=== PATIENT | female | born 1960 | race Caucasian/White ===

== ENCOUNTER 2019-02-26 16:09 | Emergency (ER) | payer OTHER ==
[2019-02-26 16:20] VITALS: BP 167/108
[2019-02-26] MEDS ORDERED: ONDANSETRON PF 4 MG/2 ML VIAL. ONE (16:25)
[2019-02-26] MEDS ORDERED: IV NORMAL SALINE 1,000ML 1,000 ML IV ONE (16:30)
[2019-02-26] MEDS ORDERED: ONDANSETRON PF 4 MG/2 ML VIAL. IV ONE (16:45)
[2019-02-26] MEDS ORDERED: KETOROLAC 30 MG/ML VIAL. IV ONE (16:45)
--- NOTE | 2019-02-26 16:48 | PHYS DOC ---
Past History Past Medical History: Diabetes, High Cholesterol Past Surgical History: Other Alcohol Use: None Drug Use: None Adult General Chief Complaint Chief Complaint: FLANK PAIN HPI HPI 58-year-old female presents with left flank pain. The patient is feeling a little bit off the last couple of days with some intermittent mild abdominal pain. Today however, she had left-sided flank pain was much more intense. It feels similar to her previous kidney stones. She has not had one in about 15 years. She has increased urinary frequency, but denies dysuria. She denies fever or chills. She has had 4 episodes of emesis. She is currently nauseous. Review of Systems Review of Systems Constitutional: Denies fever or chills [] Eyes: Denies change in visual acuity, redness, or eye pain [] HENT: Denies nasal congestion or sore throat [] Respiratory: Denies cough or shortness of breath [] Cardiovascular: No additional information not addressed in HPI [] GI: Left lower quadrant abdominal pain, nausea, vomiting. Denies bloody stools or diarrhea [] : Denies dysuria or hematuria [] Musculoskeletal: Left flank pain[] Integument: Denies rash or skin lesions [] Neurologic: Denies headache, focal weakness or sensory changes [] Endocrine: Denies polyuria or polydipsia [] All other systems were reviewed and found to be within normal limits, except as documented in this note. Current Medications Current Medications Current Medications Medications (Trade) Dose Ordered Sig/Kelli Start Time Stop Time Status Last Admin Dose Admin Ketorolac Tromethamine (Toradol 30mg Vial) 30 mg 1X ONCE 02/26/19 16:45 02/26/19 16:46 02/26/19 16:42 30 MG Ondansetron HCl (Zofran) 4 mg STK-MED ONCE 02/26/19 16:25 02/26/19 16:25 DC Sodium Chloride 1,000 ml @ 1,000 mls/hr 1X ONCE 02/26/19 16:30 02/26/19 17:29 02/26/19 16:40 1,000 MLS/HR Allergies Allergies Allergies Coded Allergies Type Severity Reaction Last Updated Verified No Known Drug Allergies 02/26/19 No Physical Exam Physical Exam Constitutional: Well developed, well nourished, no acute distress, non-toxic appearance. [] HENT: Normocephalic, atraumatic, bilateral external ears normal, oropharynx moist, no oral exudates, nose normal. [] Eyes: PERRLA, EOMI, conjunctiva normal, no discharge. [] Neck: Normal range of motion, no tenderness, supple, no stridor. [] Cardiovascular:Heart rate regular rhythm, no murmur [] Lungs & Thorax: Bilateral breath sounds clear to auscultation [] Abdomen: Bowel sounds normal, soft, LLQ tenderness, no masses, no pulsatile masses. [] Skin: Warm, dry, no erythema, no rash. [] Back: No tenderness, left sided CVA tenderness. [] Extremities: No tenderness, no cyanosis, no clubbing, ROM intact, no edema. [] Neurologic: Alert and oriented X 3, normal motor function, normal sensory function, no focal deficits noted. [] Psychologic: Affect normal, judgement normal, mood normal. [] Current Patient Data Vital Signs Vital Signs Date Time Temp Pulse Resp B/P (MAP) Pulse Ox O2 Delivery O2 Flow Rate FiO2 02/26/19 16:20 97.8 89 18 97 Room Air EKG EKG [] Radiology/Procedures Radiology/Procedures [] Impressions: CT ABDOMEN PELVIS WO CONTRAST Indication: Left flank pain, history of kidney stones. Exposure: One or more of the following individualized dose reduction techniques were utilized for this examination: 1. Automated exposure control 2. Adjustment of the mA and/or kV according to patient size 3. Use of iterative reconstruction technique. Comparison: None available Technique: No intravenous contrast given. No oral contrast per request. Findings: Evaluation of solid viscera, bowel and vasculature is compromised by the noncontrast technique. Mild atelectasis or fibrosis in the right posteromedial lung base. Liver and spleen appear grossly unremarkable. Pancreas is unremarkable. No evidence of adrenal mass. 2 mm nonobstructive calculus in the lower pole the left kidney. Mild left hydronephrosis and ureteric dilatation to the left ureterovesical junction where there is a 3 mm calculus. No right-sided calculus or hydronephrosis. Gallbladder contracted without calcified stone. Aorta is nonaneurysmal. No significant lymph node enlargement. No significant small bowel distention. Mild colonic diverticulosis. No evidence of acute colitis. The appendix is not clearly visualized. No significant ascites or evidence of pneumoperitoneum. Urinary bladder cannot be evaluated due to the nondistention. Focal right convexity scoliosis at the L2 level. Degenerative spondylosis at multiple levels. No focal aggressive destructive bone lesion. Mild degenerative changes at the hips. IMPRESSION: Mildly obstructive 3 mm calculus at the left ureterovesical junction. Additional left renal calculus. Electronically signed by: Rinku Maxwell MD (02/26/2019 5:26 PM) [facility] DICTATED AND SIGNED BY: RINKU MAXWELL MD DATE: 02/26/19 109 CC: MORA DAMON DO; [facility] [employer] ~ Course & Med Decision Making Course & Med Decision Making Pertinent Labs and Imaging studies reviewed. (See chart for details) The patient was given 4 mg of Zofran, 1 L of normal saline, and 30 mg Toradol. The patient does have a mildly obstructing 3 mm kidney stone at the left ur eterovesical junction. Given his size, this should pass. The patient's labs are unremarkable. Her urinalysis does not show infection. I will discharge her with reconstructions to drink plenty of fluids and if her [place] 5/325 for breakthrough pain. She is stable for discharge at this time. [] Dragon Disclaimer Dragon Disclaimer This electronic medical record was generated, in whole or in part, using a voice recognition dictation system. Departure Departure: Impression: Primary Impression: Ureterolithiasis Additional Impression: Nephrolithiasis Disposition: 01 HOME, SELF-CARE Condition: STABLE Referrals: LAMAR ASTORGA [employer] MANAGER (PCP) Patient Instructions: Kidney Stones, [id number] Scripts Ondansetron (ONDANSETRON ODT) 4 Mg Tab.rapdis 1 TAB PO PRN Q6-8HRS PRN for VOMITING, #16 TAB Prov: MORA DAMON DO 02/26/19 Hydrocodone Bit/Acetaminophen (NORCO 5-325 TABLET) 1 Each Tablet 1 TAB PO PRN Q6HRS PRN for PAIN, #10 TAB 0 Refills Prov: MORA DAMON DO 02/26/19 Problem Qualifiers MORA DAMON DO Feb 26, 2019 16:48
[2019-02-26 16:50] LABS: BASO # 0.1 x10^3/uL (0.0-0.2); BASO % 1 % (0-3); EOS % 0 % (0-3); HEMOGLOBIN 14.3 g/dL (12.0-15.5); LYMPH # 2.1 x10^3/uL (1.0-4.8); LYMPH % 19 % (24-48); MEAN CORPUSCULAR HEMOGLOBIN 33 pg (25-35); MEAN CORPUSCULAR HGB CONC 34 g/dL (31-37); MEAN CORPUSCULAR VOLUME 98 fL (79-100); MONO # 0.7 x10^3/uL (0.0-1.1); MONO % 7 % (0-9); NEUT # 8.3 x10^3uL (1.8-7.7); NEUT % 74 % (31-73); PLATELET COUNT 241 x10^3/uL (140-400); RED BLOOD COUNT 4.31 x10^6/uL (3.50-5.40); RED CELL DISTRIBUTION WIDTH 12.7 % (11.5-14.5); WHITE BLOOD COUNT 11.2 x10^3/uL (4.0-11.0)
[2019-02-26 16:59] LABS: ALBUMIN 3.7 g/dL (3.4-5.0); ALBUMIN/GLOBULIN RATIO 0.9 (1.0-1.7); CALCIUM 9.5 mg/dL (8.5-10.1); CREATININE 1.3 mg/dL (0.6-1.0); GFR 42.1; TOTAL BILIRUBIN 0.2 mg/dL (0.2-1.0); TOTAL PROTEIN 7.7 g/dL (6.4-8.2)
[2019-02-26 17:02] LABS: BILIRUBIN,URINE NEG (NEG); CLARITY,URINE CLEAR; COLOR,URINE YELLOW; GLUCOSE,URINE NEG (NEG)
[2019-02-26 17:03] LABS: BACTERIA,URINE FEW /HPF (0-FEW); NITRITE,URINE NEG (NEG); SQUAMOUS EPITHELIAL CELL,UR FEW /LPF; UROBILINOGEN,URINE 1 mg/dL (0.2 mg/dL)
[2019-02-26 17:04] LABS: HYALINE CASTS, URINE OCC /HPF
--- NOTE | 2019-02-26 17:29 | RAD ---
CT ABDOMEN PELVIS WO CONTRAST Indication: Left flank pain, history of kidney stones. Exposure: One or more of the following individualized dose reduction techniques were utilized for this examination: 1. Automated exposure control 2. Adjustment of the mA and/or kV according to patient size 3. Use of iterative reconstruction technique. Comparison: None available Technique: No intravenous contrast given. No oral contrast per request. Findings: Evaluation of solid viscera, bowel and vasculature is compromised by the noncontrast technique. Mild atelectasis or fibrosis in the right posteromedial lung base. Liver and spleen appear grossly unremarkable. Pancreas is unremarkable. No evidence of adrenal mass. 2 mm nonobstructive calculus in the lower pole the left kidney. Mild left hydronephrosis and ureteric dilatation to the left ureterovesical junction where there is a 3 mm calculus. No right-sided calculus or hydronephrosis. Gallbladder contracted without calcified stone. Aorta is nonaneurysmal. No significant lymph node enlargement. No significant small bowel distention. Mild colonic diverticulosis. No evidence of acute colitis. The appendix is not clearly visualized. No significant ascites or evidence of pneumoperitoneum. Urinary bladder cannot be evaluated due to the nondistention. Focal right convexity scoliosis at the L2 level. Degenerative spondylosis at multiple levels. No focal aggressive destructive bone lesion. Mild degenerative changes at the hips. IMPRESSION: Mildly obstructive 3 mm calculus at the left ureterovesical junction. Additional left renal calculus. Electronically signed by: Rinku Maxwell MD (02/26/2019 5:26 PM) [facility]
[2019-02-26] MEDS ORDERED: HYDR-3165 PO (17:39)
[2019-02-26] MEDS ORDERED: ONDA4TAB12 PO (17:39)
== END 2019-02-26 17:41 | disposition home or self-care (01) ==
LOC: ER 16:09
DX: N13.2 Hydronephrosis with renal and ureteral calculous obstruction (principal); R11.2 Nausea with vomiting, unspecified; E11.9 Type 2 diabetes mellitus without complications; E78.00 Pure hypercholesterolemia, unspecified
CPT/HCPCS: 36415; 74176; 80053; 81001; 85025; 96361; 96374; 96375; 99285; J1885; J2405; J7030